=== PATIENT | female | born 1970 | race Caucasian/White ===

== ENCOUNTER 2018-02-26 09:19 | Outpatient (CLI) | payer BC ==
--- NOTE | 2018-02-26 14:47 | MMO ---
BILATERAL SCREENING MAMMOGRAM: COMPARISON: 05/20/14 study. HISTORY: Annual screening study. FINDINGS: Films are reviewed with the assistance of computer-aided detection. The breasts are heterogeneously dense. There is no dominant mass, suspicious calcification, or other signs of malignancy. IMPRESSION: BI-RADS category 1 - negative. BIRADS 1: Negative Routine annual screening mammography (for women over age 40) POS: AYESHA
== END 2018-02-26 09:20 | disposition home or self-care (01) ==
LOC: SCSMAMMO 09:19
PROVIDERS: ATTEND Family Medicine
DX: Z12.31 Encounter for screening mammogram for malignant neoplasm of breast (principal)
CPT/HCPCS: 77067